=== PATIENT | female | born 1980 | race Caucasian/White ===

== ENCOUNTER 2017-03-06 06:55 | Inpatient (IN) | payer OTHER ==
[~2017-03-06] VITALS: Ht 172.7 cm; Wt 116.0 kg
[2017-03-06 07:32] VITALS: BP 113/79; PULSE 89; RESP 20
[2017-03-06] MEDS ORDERED: OXYTOCIN 30 UNITS/LR 500 ML IV PRN ×3 (08:30→13:00)
[2017-03-06] MEDS ORDERED: CEFAZOLIN 2 GM/50 ML (PMX) 50 ML IV PRN (08:30)
[2017-03-06] MEDS ORDERED: MISOPROSTOL 200 MCG TAB PR PRN ×2 (08:30→13:00)
[2017-03-06] MEDS ORDERED: CARBOPROST 250 MCG INJ IM PRN ×2 (08:30→13:00)
[2017-03-06] MEDS ORDERED: METHYLERGONOVINE 0.2 MG INJ IM PRN ×2 (08:30→13:00)
--- NOTE | 2017-03-06 08:30 | TRIAGE ---
OB Triage Datetime Report Generated by CPN: 03/06/2017 08:29 Datetime: 03/06/2017 08:26 Labor Evaluation Frequency: 3-20 Monitor Mode: External Duration (sec)2399: 50-180 Quality: Mild Pattern: Normal: <= 5 Contractions in 10 Minutes Resting Tone [place]: Relaxed Heart Rate FHR Baseline Rate: 125 Monitor Mode: External US FHR Baseline Changes: No Baseline Change Variability: Moderate 6-25 bpm Accelerations: 15X15 Decelerations: None Category: Category I Datetime: 03/06/2017 07:29 Time of Arrival: 03/06/2017 06:51 EGA: 38.3 Arrived By: Wheelchair Arrived From: Home Chief Complaint: CRAMPING BACK PAIN OF 05/06 @0430, NOTED "LARGE" AMOUNT OF BLEEDING AT THIS TIME, DARK RED, WITH CLOTS; BLEEDING CONTINUES THOUGH IS LESS Movement: Decreased Contractions: Regular Rupture of Membranes: Denies Vaginal Bleeding: Moderate; Dark Red Vaginal Discharge: Present Recent Sexual Intercouse: Denies Abdominal Trauma: Not Applicable Patient Complaints: Other Time Provider Notified: 03/06/2017 08:02 Provider Notified: DR. LOPEZ Initial Plan: EFM x2 Datetime: 03/06/2017 07:25 Stage of : OB Triage Assessment Type: Triage Maternal Assessment Level of Consciousness: Fully Conscious Headache: Denies Blurred Vision: No Respiratory Effort: Unlabored; Regular Rhythm; Equal Expansion Breath Sounds, Left: Clear and Equal Breath Sounds, Right: Clear and Equal Nausea/Vomiting: Denies RUQ Epigastric Pain: Denies Lower Extremities Edema: Bilateral Lower Extremities Degree: Pitting Upper Extremities Edema: None Degree: None Facial Edema: None Temperature Route: Oral Fall Risk Assessment History of Falling: (0) No Secondary Diagnosis: (0) No Ambulatory Aid: (0) Bedrest/Nurse Assist IV Therapy: (0) No Gait: (0) Normal/Bedrest/Immobile Mental Status: (0) Oriented to Own Ability Fall Score: 0 Fall Risk Score Definition: No Risk: No action required Pain Assessment Pain Scale: 0 Pain Presence: None/Denies Pain Type: N/A
[2017-03-06] MEDS: LACTATED RINGER'S 1,000 ML IV SCH ×4 (08:43→20:43)
--- NOTE | 2017-03-06 08:52 | HP ---
Date/Time of Note Date/Time of Note DATE: 03/06/17 TIME: 08:47 OB - History Hx of Present Free Text/Dictation Patient is 5 para 4 at 38+3 weeks of gestation presents with vaginal bleeding and contractions She was scheduled for repeat on March 12, 2017 Patient with prior history of 4 Patient with prior history of delivery Patient with prior history of sudden syndrome at 4 months She has been receiving her care with Dr. Sheldon Care: Good Care Obstetrical Complications: Gestational Diabetes Past Family/Social History * Past Medical, Surgical, Family and Obstetric Histories reviewed from chart. OB Admission Exam Vital Signs Vital Signs Vital Signs Date Time Temp Pulse Resp B/P Pulse Ox O2 Delivery O2 Flow Rate FiO2 03/06/17 07:32 97.5 89 20 113/79 96 Room Air Physical Exam HEENT: WNL Heart: Rhythm Normal Lungs: Clear, Equal Abdomen: WNL Extremities: Normal Reflexes: Normal Heart Rate: 140's Accelerations: Accelerations Present Decelerations: No Decelerations Contractions on Admission: >10 Minutes Apart OB Assessment/Plan Other Assessment: 38+3 weeks of gestation presents with vaginal bleeding and contractions Patient with history of prior 4 Other plan: We will proceed with a repeat Patient has been counseled regarding all benefits and risks of repeat including but not limited to infection, bleeding which may require blood transfusion, trauma to other organs including bowel and bladder Patient understands the planned surgery and agrees to proceed All her questions were answered ASHLIE LOPEZ MD Mar 06, 2017 08:52
[2017-03-06 08:54] LABS: ADD SCAN DIFF NO
[2017-03-06 09:01] LABS: BASOPHIL # 0.1 10^3/ul (0.0-0.1); BASOPHILS % 0.4 % (0.0-2.0); EOSINOPHILS # 0.1 10^3/ul (0.0-0.5); EOSINOPHILS % 0.8 % (0.0-7.0); HEMATOCRIT 32.9 % (37.0-47.0); HEMOGLOBIN 10.1 g/dl (12.0-16.0); LYMPHOCYTES # 2.4 10^3/ul (0.8-2.9); LYMPHOCYTES % 18.7 % (15.0-51.0); MEAN CORPUSCULAR HEMOGLOBIN 22.2 pg (29.0-33.0); MEAN CORPUSCULAR HGB CONC 30.7 g/dl (32.0-37.0); MEAN CORPUSCULAR VOLUME 72.5 fl (82.0-101.0); MEAN PLATELET VOLUME 9.4 fl (7.4-10.4); MONOCYTES % 7.9 % (0.0-11.0); NEUTROPHIL # 9.1 10^3/ul (1.6-7.5); NEUTROPHILS % 71.6 % (39.0-77.0); PLATELET COUNT 357 10^3/UL (140-415); RED BLOOD COUNT 4.54 10^6/ul (4.20-5.40); RED CELL DISTRIBUTION WIDTH 15.1 % (11.5-14.5); WHITE BLOOD COUNT 12.7 10^3/ul (4.8-10.8)
--- NOTE | 2017-03-06 09:05 | RADRPT ---
PROCEDURE: US OB. CLINICAL INDICATION: Size and dates TECHNIQUE: Multiple sonographic images of the pelvis and gravid uterus were obtained. The images were reviewed on a PACS workstation. COMPARISON: No prior studies are available for comparison. FINDINGS: There is a single viable intrauterine gestation. Cardiac activity is present with 120 beats per min [place]. There is a vertex presentation. The placenta is anterior. There is no evidence for an abruption or placenta previa. There is a normal amount of amniotic fluid with an SAEID = 14.0 cm. Measurements were made in order to determine age. The results are as follows: BPD =9.6 cm HC =33.7 cm AC =36 cm FL =7.5 cm Estimated gestational age of approximately 39 weeks and 1 day based on ultrasound measurements. Clinical age: 38 weeks and 3 days. The estimated date of delivery is 03/12/2017, based on ultrasound measurements. The EFW = 3767 g, 85%, based on LMP age. RPTAT: AA IMPRESSION: Single viable intrauterine gestation of approximately 39 weeks and 1 day based on ultrasound measur ements. .Nirav Tristan MD, Date Time Electronically viewed and signed by .Nirav Tristan MD, on 03/06/2017 09:04 .S/
--- NOTE | 2017-03-06 09:14 | RADRPT ---
PROCEDURE: US OB biophysical profile. CLINICAL INDICATION: decreased movements, bleeding TECHNIQUE: Multiple sonographic images of the pelvis were obtained. The images were reviewed on a PACS workstation. COMPARISON: No prior studies are available for comparison. FINDINGS: There is a single viable intrauterine gestation. Cardiac activity is present with 122 beats per min [place]. There is a vertex presentation. The placenta is anterior. There is no evidence for an abruption or placenta previa. There is a normal amount of amniotic fluid with an SAEID = 14.0 cm. Biophysical profile: movement 2/2 tone 2/2. breathing 2/2 SAEID 2/2 Total 05/04 RPTAT: AA . IMPRESSION: Normal biophysical profile. . .Nirav Tristan MD, Date Time Electronically viewed and signed by .Nirav Tristan MD, MD on 03/06/2017 09:13 .S/
[2017-03-06 09:24] LABS: INR 1.08; PT RATIO 1.1
[2017-03-06 09:30] LABS: PARTIAL THROMBOPLASTIN TIME 28.5 Sec (25.0-35.0)
[2017-03-06 09:36] LABS: GLUCOSE 97 mg/dl (70-220)
[2017-03-06] MEDS ORDERED: morphine SULFATE/PF (10 MG/10 ML) INJ ONE (10:29)
[2017-03-06] MEDS ORDERED: FENTAnyl 50 MCG/ML VIAL ONE (10:30)
[2017-03-06] MEDS ORDERED: PHENYLephrine (100 MCG/ML) 5ML SYG ONE (10:39)
[2017-03-06] MEDS ORDERED: DEXAMETHASONE 4 MG/ML 1 ML INJ ONE (10:42)
[2017-03-06] MEDS ORDERED: ONDANSETRON 4 MG INJ ONE (10:56)
[2017-03-06] MEDS ORDERED: NALOXONE (0.4 MG/ML) INJ IV PRN (11:30)
[2017-03-06] MEDS ORDERED: ONDANSETRON 4 MG INJ IV PRN (11:30)
[2017-03-06] MEDS ORDERED: DIPHENHYDRAMINE 50 MG INJ IV PRN (11:30)
[2017-03-06] MEDS ORDERED: ZOLPIDEM 5 MG TAB PO PRN (11:30)
[2017-03-06] MEDS ORDERED: HYDROmorphONE 1 MG/ML SYG IV PRN ×2 (11:30)
[2017-03-06] MEDS ORDERED: OXYCODONE/ACETAMINOPHEN (5/325) TAB PO PRN (13:00)
[2017-03-06] MEDS ORDERED: BISACODYL 10 MG SUPP PR PRN (13:00)
[2017-03-06 14:35] VITALS: BP 115/66; RESP 16
--- NOTE | 2017-03-06 15:21 | OPR ---
Operative Report Planned Procedure Free Text/Dictation 5 para 4 with prior history of 4 presents with vaginal bleeding and contractions Procedure date Mar 06, 2017 Procedure(s) Repeat section Performed by: ASHLIE LOPEZ MD Assisting provider: ÁLVARO STOREY M.D. Pre-procedure diagnosis 5 para 4 with prior history of 4 presents with vaginal bleeding and contractions Anesthesia Type: spinal Procedure Description Patient was taken to the operating room after adequate amount of anesthesia was given patient was prepped and draped in normal sterile fashion A Pfannenstiel skin incision was made and the old scar was removed sharply with a scalpel Incision was carried through the underlying layer of fascia Fascia was incised in the midline and extended bilaterally using Bovie Both anterior and posterior lip of fascia were grasped with Leslie clamps and elevated and from underlying layers of rectus muscle with Bovie Peritoneum was identified and grasped with pickups and entered sharply with Metzenbaum scissors Peritoneum was entered without any complications and extended bilaterally sharply using Metzenbaum scissors The lower segment of uterus was evaluated and noted to have omental adhesions which were both sharply and bluntly dissected off A bladder flap was created both sharply and bluntly and a bladder blade was placed to provide protection for the bladder Low transverse uterine incision was made with the scalpel and incision extended bilaterally manually Fetus was delivered from vertex presentation atraumatically and handed to the waiting milieu therapist team Placenta was delivered intact manually and noted with three-vessel cord Uterus was cleared of all clots and debris and uterine incision closure was proceeded with 1 Vicryl suture in running locked fashion A second imbricating layer of the same suture was placed for further hemostasis Multiple irrigations were performed and excellent hemostasis was obtained Surgicel material was placed on the lower uterine segment Peritoneal closure was proceeded with 2-0 Vicryl suture in running fashion Fascial closure was proceeded with 0 Vicryl suture in running fashion in 2 separate segments Subcutaneous layer was irrigated and closed with 3.0 plain in an interrupted fashion Skin was closed with end-sorb omar and Dermabond All sponge lap and needle counts were correct Patient tolerated procedure well and taken back to recovery room in a stable condition Post-Procedure Findings: Live Baby female, Apgars 8 and 9, weight 8 lbs. 1 oz./3660 g, presentation vertex Specimen removed: Yes Specimen description Placenta Complications none Pt Condition post procedure: stable Post-procedure comments Multiple adhesions of omentum to the lower uterine segment noted Physician Certification I, the undersigned physician, hereby certify that I have discussed the procedure described in this consent form with this patient (or the patient's legal community representative), including: * The risk and benefits of the procedure; * Any adverse reactions that may reasonably be expected to occur; * Any alternative efficacious methods of treatment which may be medically viable ; * The potential problems that may occur during recuperation; * Potential for blood transfusion and associated risks/benefits; and * Any research or economic interest I may have regarding this treatment. I further certify that the patient/legally responsible person was encouraged to ask question and that all questions were answered. Copies To: CC: MAGDA TOLLIVER MD, BAHAREH MD Mar 06, 2017 15:16
[2017-03-06] MEDS: CEFAZOLIN 1 GM/50 ML (PMX) 50 ML IV SCH ×2 (15:54→22:21)
[2017-03-06] MEDS: KETOROLAC 30 MG INJ IV PRN ×2 (15:56→23:20)
[2017-03-06] MEDS: OXYTOCIN 30 UNITS/LR 500 ML IV SCH ×2 (15:57→21:39)
[2017-03-06 16:00] VITALS: BP 113/69; PULSE 76; RESP 16
[2017-03-06 19:50] VITALS: BP 111/64; PULSE 82; RESP 16
[2017-03-07] VITALS: BP 96/50; PULSE 86; RESP 16
[2017-03-07] MEDS: LACTATED RINGER'S 1,000 ML IV SCH ×3 (02:28→08:13)
[2017-03-07 04:15] VITALS: BP 92/50; PULSE 86; RESP 16
[2017-03-07 07:13] LABS: ADD SCAN DIFF NO
[2017-03-07 07:14] LABS: ABNORMAL IP MESSAGE 1; BASOPHILS % 0.2 % (0.0-2.0); EOSINOPHILS # 0.1 10^3/ul (0.0-0.5); EOSINOPHILS % 0.3 % (0.0-7.0); HEMATOCRIT 27.5 % (37.0-47.0); HEMOGLOBIN 8.3 g/dl (12.0-16.0); LYMPHOCYTES # 3.1 10^3/ul (0.8-2.9); LYMPHOCYTES % 16.1 % (15.0-51.0); MEAN CORPUSCULAR HGB CONC 30.2 g/dl (32.0-37.0); MEAN CORPUSCULAR VOLUME 72.9 fl (82.0-101.0); MONOCYTE # 1.8 10^3/ul (0.3-0.9); MONOCYTES % 9.1 % (0.0-11.0); NEUTROPHIL # 14.1 10^3/ul (1.6-7.5); NEUTROPHILS % 73.5 % (39.0-77.0); PLATELET COUNT 320 10^3/UL (140-415); RED BLOOD COUNT 3.77 10^6/ul (4.20-5.40); WHITE BLOOD COUNT 19.2 10^3/ul (4.8-10.8)
[2017-03-07] MEDS: CEFAZOLIN 1 GM/50 ML (PMX) 50 ML IV SCH (07:16)
[2017-03-07] MEDS: KETOROLAC 30 MG INJ IV PRN (07:34)
[2017-03-07 07:52] LABS: ALBUMIN 2.9 g/dl (3.3-4.9); ALBUMIN/GLOBULIN RATIO 1.03; BILIRUBIN,INDIRECT 0.2 mg/dl (0-1.1); BILIRUBIN,TOTAL 0.2 mg/dl (0.2-1.3); CALCIUM 8.1 mg/dl (8.4-10.2); CREATININE 0.73 mg/dl (0.44-1.00); POTASSIUM 3.8 mmol/L (3.5-5.1); TOTAL PROTEIN 5.7 g/dl (6.1-8.1)
[2017-03-07 08:00] VITALS: BP 96/55; PULSE 87; RESP 18
--- NOTE | 2017-03-07 12:23 | QN ---
Documentation Comment pod1 pt doing well no kay sob vss exam wnl CDI no edema a/p pod1 hh down to 8.3 pt asymptomatic continue care JUANJO SCHWARZ MD Mar 07, 2017 12:23
[2017-03-07 15:40] VITALS: BP 117/67; PULSE 100; RESP 18
[2017-03-07] MEDS: OXYCODONE/ACETAMINOPHEN (5/325) TAB PO PRN (16:21)
[2017-03-07 19:55] VITALS: BP 114/67; PULSE 62; PULSE 96; RESP 18
[2017-03-07] MEDS: IBUPROFEN 800 MG TAB PO PRN (20:43)
[2017-03-08] MEDS: OXYCODONE/ACETAMINOPHEN (5/325) TAB PO PRN ×4 (03:41→23:46)
[2017-03-08 04:20] VITALS: BP 120/57; PULSE 92; RESP 16
[2017-03-08 06:52] LABS: ADD SCAN DIFF NO
[2017-03-08 06:59] LABS: ABNORMAL IP MESSAGE 1; BASOPHILS % 0.2 % (0.0-2.0); EOSINOPHILS # 0.2 10^3/ul (0.0-0.5); EOSINOPHILS % 0.8 % (0.0-7.0); HEMATOCRIT 27.2 % (37.0-47.0); HEMOGLOBIN 8.1 g/dl (12.0-16.0); LYMPHOCYTES # 2.7 10^3/ul (0.8-2.9); LYMPHOCYTES % 13.5 % (15.0-51.0); MEAN CORPUSCULAR HEMOGLOBIN 21.9 pg (29.0-33.0); MEAN CORPUSCULAR HGB CONC 29.8 g/dl (32.0-37.0); MEAN CORPUSCULAR VOLUME 73.5 fl (82.0-101.0); MEAN PLATELET VOLUME 9.5 fl (7.4-10.4); MONOCYTE # 1.6 10^3/ul (0.3-0.9); NEUTROPHIL # 15.6 10^3/ul (1.6-7.5); NEUTROPHILS % 76.4 % (39.0-77.0); PLATELET COUNT 310 10^3/UL (140-415); RED CELL DISTRIBUTION WIDTH 15.3 % (11.5-14.5); WHITE BLOOD COUNT 20.4 10^3/ul (4.8-10.8)
[2017-03-08 07:55] VITALS: BP 124/69; PULSE 99; RESP 20
[2017-03-08] MEDS: IBUPROFEN 800 MG TAB PO PRN ×2 (12:32→22:15)
[2017-03-08 16:15] VITALS: BP 113/64; PULSE 93; RESP 19
[2017-03-08 20:00] VITALS: BP 111/63; PULSE 100; RESP 18
[2017-03-09 03:40] VITALS: BP 107/63; PULSE 80; RESP 19
[2017-03-09] MEDS: IBUPROFEN 800 MG TAB PO PRN ×3 (06:33→18:03)
[2017-03-09 07:40] VITALS: BP 123/65; PULSE 85; RESP 18
[2017-03-09 07:45] LABS: ADD SCAN DIFF NO
[2017-03-09 08:00] LABS: ABNORMAL IP MESSAGE 1; BASOPHILS % 0.3 % (0.0-2.0); EOSINOPHILS # 0.3 10^3/ul (0.0-0.5); EOSINOPHILS % 1.7 % (0.0-7.0); HEMATOCRIT 26.7 % (37.0-47.0); HEMOGLOBIN 7.7 g/dl (12.0-16.0); LYMPHOCYTES # 2.4 10^3/ul (0.8-2.9); LYMPHOCYTES % 15.3 % (15.0-51.0); MEAN CORPUSCULAR HEMOGLOBIN 21.6 pg (29.0-33.0); MEAN CORPUSCULAR HGB CONC 28.8 g/dl (32.0-37.0); MEAN PLATELET VOLUME 9.6 fl (7.4-10.4); MONOCYTE # 1.1 10^3/ul (0.3-0.9); MONOCYTES % 6.8 % (0.0-11.0); NEUTROPHILS % 74.7 % (39.0-77.0); NUCLEATED RED BLOOD CELLS% 0.1 /100WBC (0.0-0.0); PLATELET COUNT 325 10^3/UL (140-415); RED BLOOD COUNT 3.56 10^6/ul (4.20-5.40); RED CELL DISTRIBUTION WIDTH 15.4 % (11.5-14.5)
--- NOTE | 2017-03-09 12:20 | DS ---
Date/Time of Note Date/Time of Note Post due 3 [place] is doing well Incision is clean Patient is discharged on analgesic to return to the clinic in 4 days for the removal of omar, and again in about 4 weeks for fallow up visit. Laboratory Tests Test 03/09/17 07:00 White Blood Count 16.010^3/ul Red Blood Count 3.5610^6/ul Hemoglobin 7.7g/dl Hematocrit 26.7% Mean Corpuscular Volume 75.0fl Mean Corpuscular Hemoglobin 21.6pg Mean Corpuscular Hemoglobin Concent 28.8g/dl Red Cell Distribution Width 15.4% Platelet Count 14459^3/UL Mean Platelet Volume 9.6fl Neutrophils % 74.7% Lymphocytes % 15.3% Monocytes % 6.8% Eosinophils % 1.7% Basophils % 0.3% Nucleated Red Blood Cells % 0.1/100WBC Neutrophils # 12.010^3/ul Lymphocytes # 2.410^3/ul Monocytes # 1.110^3/ul Eosinophils # 0.310^3/ul Basophils # 0.010^3/ul Nucleated Red Blood Cells # 0.010^3/ul Current Medications Medications (Trade) Dose Ordered Sig/Tc Route PRN Reason Start Time Stop Time Status Last Admin Dose Admin Lactated Ringer's 1,000 ml @ 125 mls/hr Q8H IV 03/06/17 08:13 03/07/17 18:09 DC 03/07/17 02:28 Cefazolin Sodium/ Dextrose 50 ml @ 100 mls/hr ONCE PRN IV PRIOR TO SURGERY 03/06/17 08:30 03/07/17 18:11 DC Oxytocin/Lactated Ringer's 500 ml @ 125 mls/hr ONCE PRN IV POST DELIVERY 03/06/17 08:30 03/07/17 18:09 DC 03/06/17 12:05 Oxytocin/Lactated Ringer's 500 ml @ 0 mls/hr ONCE PRN IV For Hemorrhage Management 03/06/17 08:30 03/07/17 18:10 DC Methylergonovine Maleate (Methergine) 0.2 mg ONCE PRN IM VAGINAL BLEEDING 03/06/17 08:30 03/06/17 13:03 DC Carboprost Tromethamine (Hemabate) 250 mcg ONCE PRN IM VAGINAL BLEEDING 03/06/17 08:30 03/06/17 13:02 DC Misoprostol (Cytotec) 1,000 mcg ONCE PRN ID VAGINAL BLEEDING 03/06/17 08:30 03/06/17 13:03 DC Morphine Sulfate (Duramorph) 10 mg STK-MED ONCE .ROUTE 03/06/17 10:29 03/06/17 10:30 DC Fentanyl (Sublimaze) 100 mcg STK-MED ONCE .ROUTE 03/06/17 10:30 03/06/17 10:31 DC Phenylephrine HCl (Maxx-Synephrine Inj Syg) 500 mcg STK-MED ONCE .ROUTE 03/06/17 10:39 03/06/17 10:40 DC Dexamethasone (Decadron) 4 mg STK-MED ONCE .ROUTE 03/06/17 10:42 03/06/17 10:43 DC Ondansetron HCl (Zofran Inj) 4 mg STK-MED ONCE .ROUTE 03/06/17 10:56 03/06/17 10:57 DC Naloxone HCl (Narcan) 0.1 mg Q2M PRN IV FOR RESP RATE 8 OR LESS 03/06/17 11:30 03/07/17 10:30 DC Ketorolac Tromethamine (Toradol) 30 mg Q6H PRN IV PAIN 03/06/17 11:30 03/07/17 10:30 DC 03/07/17 07:34 Hydromorphone HCl (Dilaudid) 0.2 mg Q3H PRN IV PAIN LEVEL 1-5 03/06/17 11:30 03/07/17 10:30 DC Hydromorphone HCl (Dilaudid) 0.4 mg Q3H PRN IV PAIN LEVEL 6-10 03/06/17 11:30 03/07/17 10:30 DC Diphenhydramine HCl (Benadryl) 25 mg Q6H PRN IV ITCHING 03/06/17 11:30 03/07/17 10:30 DC Ondansetron HCl (Zofran Inj) 4 mg Q6H PRN IV NAUSEA AND/OR VOMITING 03/06/17 11:30 03/07/17 10:30 DC Zolpidem Tartrate (Ambien) 5 mg HS MAY REPEAT X 1 PRN PO INSOMNIA 03/06/17 11:30 03/07/17 10:30 DC Miscellaneous Information Duramorph: .2 mg Spi... GIVEN XX 03/06/17 11:30 03/07/17 09:41 DC Lactated Ringer's 1,000 ml @ 125 mls/hr Q8H IV 03/06/17 12:43 03/07/17 09:41 DC Cefazolin Sodium 50 ml @ 100 mls/hr Q8H IV 03/06/17 13:00 03/07/17 05:29 DC 03/07/17 07:16 Oxytocin/Lactated Ringer's 500 ml @ 125 mls/hr Q4H IV 03/06/17 12:43 03/06/17 20:42 DC 03/06/17 21:39 Oxycodone/ Acetaminophen (Percocet (5/ 325)) 1 tab Q4H PRN PO PAIN LEVEL 4-6 03/06/17 13:00 Oxycodone/ Acetaminophen (Percocet (5/ 325)) 2 tab Q4H PRN PO PAIN LEVEL 7-10 03/06/17 13:00 03/08/17 23:46 Simethicone 160 mg 160 mg Q8H PRN PO DISTENSION/GAS/BLOATING 03/06/17 13:00 03/08/17 07:54 Oxytocin/Lactated Ringer's 500 ml @ 0 mls/hr ONCE PRN IV For Hemorrhage Management 03/06/17 13:00 03/07/17 18:10 DC Methylergonovine Maleate (Methergine) 0.2 mg ONCE PRN IM VAGINAL BLEEDING 03/06/17 13:00 Carboprost Tromethamine (Hemabate) 250 mcg ONCE PRN IM VAGINAL BLEEDING 03/06/17 13:00 Misoprostol (Cytotec) 1,000 mcg ONCE PRN ID VAGINAL BLEEDING 03/06/17 13:00 Ibuprofen (Motrin) 800 mg Q6H PRN PO PAIN 03/07/17 13:00 03/09/17 06:33 Bisacodyl (Dulcolax Supp) 10 mg DAILY PRN ID CONSTIPATION 03/06/17 13:00 03/08/17 22:24 DATE: 03/09/17 TIME: 12:14 Post to 3 Patient is doing well, Ambulatory She is afebrile Abdomen is soft , Fundus is firm Incision is clean Moderate amount of lochia Breasts are soft, Nipples are intact No calf tenderness. No ankle edema Breast feeding the new born. New born is doing well Post C Section day 2 Doing Well Obstetrical Discharge Record Final Diagnosis Final Diagnosis: Term delivered Section Section: Repeat Condition on Discharge Physical Assessment Voiding: Yes Bowel Movement: Yes Fundus: Firm Abdomen and Incision: Clean Calf Tenderness: No Patient Condition: Good MINI CREWS MD Mar 09, 2017 12:20
[2017-03-09] MEDS: OXYCODONE/ACETAMINOPHEN (5/325) TAB PO PRN ×2 (14:38→20:15)
[2017-03-09 16:00] VITALS: BP 136/76; PULSE 105; RESP 18
[2017-03-09 20:15] VITALS: BP 131/71; PULSE 104; RESP 18
[2017-03-10] MEDS: IBUPROFEN 800 MG TAB PO PRN ×3 (00:18→12:24)
[2017-03-10] MEDS: OXYCODONE/ACETAMINOPHEN (5/325) TAB PO PRN (04:05)
[2017-03-10 04:54] VITALS: BP 114/71; PULSE 90; RESP 20
[2017-03-10 08:00] VITALS: BP_SYST 107; PULSE 85; RESP 18
[2017-03-10 15:55] VITALS: BP 126/73; PULSE 86; RESP 18
== END 2017-03-10 17:15 | disposition home or self-care (01) | DRG 766 ==
LOC: OBT 06:55 → L-D 06:56 → OBT 08:15 → L-D 08:32 → PP1 15:06
PROVIDERS: ADMIT Specialist; ATTEND Specialist
PROC: 10D00Z1 Extraction of Products of Conception, Low, Open Approach (ICD-10-PCS; principal; 2017-03-06 11:00)
DX: O34.219 Maternal care for unspecified type scar from previous cesarean delivery (principal); O24.429 Gestational diabetes mellitus in childbirth, unspecified control; Z3A.38 38 weeks gestation of pregnancy; Z37.0 Single live birth; Z87.51 Personal history of pre-term labor
CPT/HCPCS: 76815; 76818; 80053; 82947; 85025; 85610; 85730; 86592; 86703; 86850; 86900; 86901; 86920; 87340; 94760; 99464; G0463; J0690; J1100; J1885; J2210; J2274; J2370; J2405; J2590; J3010; J7120